=== PATIENT | male | born 1975 | race Caucasian/White ===

== ENCOUNTER 2019-07-07 22:07 | Emergency (ER) | payer OTHER, SELFPAY ==
[2019-07-07 22:08] VITALS: BP 160/96; PULSE 78; RESP 18; TEMP 36.7; O2SAT 99; BMI 31.2
--- NOTE | 2019-07-07 22:09 | EKG12_ITS ---
Test Reason : CHEST PAIN Blood Pressure : / mmHG Vent. Rate : 072 BPM Atrial Rate : 072 BPM P-R Int : 150 ms QRS Dur : 094 ms QT Int : 368 ms P-R-T Axes : 045 -03 013 degrees QTc Int : 402 ms Normal sinus rhythm Minimal voltage criteria for LVH, may be normal variant Borderline ECG Confirmed by SHARI MENJIVAR, TANYA ([id number]), news copy editor JHONNY PÉREZ ([id number]) on 07/09/2019 1:33:19 PM Referred By: LIONEL Confirmed By:TANYA MCCARTHY MD
--- NOTE | 2019-07-07 22:10 | ED.VIS.GEN ---
History of Present Illness Chief Complaint: Chest Pain Informant: Patient Onset: Days - Episode of discomfort on Saturday and pressure sensation most of the day yesterday and pressure sensation that started at 1800 today and has been constant. Context: Sudden Onset Timing: Intermittent Quality: Aching on Saturday pressure Saturday and today Location: Left anterior chest Current Severity: Moderate Maximum Severity: Severe Worsened by: Nothing Relieved by: Nothing Associated Symptoms: None Narrative: Patient is a 43-year-old male who is a non-smoker and nondrinker who presents with left-sided chest pain that occurred with activity yesterday and at rest today. He denies food intolerance. He denies nausea, vomiting diarrhea. Denies black or maroon stool. He denies history of reflux, hiatal hernia or peptic ulcer disease. He denies history of VTE and has no risk factors. He denies leg pain, swelling discoloration. He denies prior chest discomfort. He has not seen a doctor in many years. He has no respiratory symptoms. Prior similar symptoms: No Recent Illness/Hospitalization: No - Past Medical History (1) No significant past medical history Status: Acute Past Medical History - Allergies and Home Meds Allergies/Adverse Reactions: Allergies No Known Allergies Allergy (Verified 07/07/19 22:08) Primary Care Physician: NOT,DEFINED [NON-STAFF] - Prior records reviewed: No Past Medical History: None Surgical History: no surgical history Lives: With Family Smoking Status: Never smoker Alcohol: None Drugs: None Review of Systems General: Denies: Chills, Fever, Malaise, Sweats Eyes: Denies: Visual changes - bilaterally, Blurred Vision - bilaterally ENT: Denies: Bilateral ear pain, Rhinorrhea, Sore throat Cardiovascular: Reports: Chest pain. Denies: Palpitations, Heart racing Respiratory: Denies: Dyspnea, Cough, Sputum, Dyspnea on exertion, Orthopnea, Paroxysmal nocturnal dyspnea Gastrointestinal: Reports: Abdominal pain - Abdominal discomfort that was upper and bilateral on Saturday.. Denies: Nausea, Vomiting, Diarrhea, Constipation, Melena, Hematochezia Genitourinary: Denies: Dysuria, Hematuria, Frequency Musculoskeletal: Denies: Myalgias, Arthralgias, Neck pain, Back pain, Swelling, Extremity Pain, -, - Skin: Denies: Rash, Wounds Neurological: Denies: Headache, Weakness, Numbness Hematologic: Denies: Easy bruising, Easy bleeding Physical Exam Inital Vital Signs reviewed: Yes General: Well nourished, Well developed, No Acute Distress Head: Normocephalic, Atraumatic Eyes: Perrl, EOMI ENT: Moist mucous membranes, No rhinorrhea Neck: Supple, Nontender, No lymphadenopathy, No JVD Cardiovascular: Regular rate, Regular rhythm, No murmurs, Normal S1, Normal S2 Respiratory: No distress, CTA bilaterally, Chest nontender Abdomen: Soft, Nontender, Nondistended, Normal bowel sounds, No masses Back: Nontender, Normal Inspection. Negative for: CVA tenderness Extremities: Nontender, No edema, - - There is no asymmetry, swelling, discoloration, leg vein distention, palpable cords or tenderness along the distribution of the deep venous system. Skin: Normal color, No rash Neurological: Alert, Oriented x3, Cranial nerves II-XII grossly intact, Normal Strength, Normal Sensation Psychological: Normal affect, Normal Mood Diagnostic/Tx/Re-eval Chest X-Ray - ED: 1 View, Read by Radiologist, Normal, Heart, Lungs, Mediastinum, Bony Structures, No Acute Disease Impressions Chest X-Ray 07/07/19 22:15 IMPRESSION: Normal x-ray examination of the chest. Electronically Signed: Gildardo Stein, at 22:26 EDT Tel , Service support , 07/07/19 22:15 Chest 1 View (Portable) [RAD] Stat Laboratory Results 07/07/19 07/07/19 22:10 22:10 WBC 8.7 RBC 4.77 Hgb 14.3 Hct 42.4 MCV 88.9 MCH 30.0 MCHC 33.7 RDW Std Deviation 40.8 RDW Coeff of Nayeli 12.5 Plt Count 222 MPV 8.7 Immature Gran % (Auto) 0.100 Neut % (Auto) 43.4 L Lymph % (Auto) 42.7 H Motley % (Auto) 8.5 Eos % (Auto) 4.5 Baso % (Auto) 0.8 Absolute Neuts (auto) 3.8 Absolute Lymphs (auto) 3.72 Nucleated RBC % 0 Sodium 140 Potassium 3.9 Chloride 105 Carbon Dioxide 30.0 Anion Gap 5 BUN 23 H Creatinine 1.04 Estim Creat Clear Calc 95.54 Est GFR (MDRD) Af Amer 100 Est GFR (MDRD) Non-Af 83 BUN/Creatinine Ratio 22.1 H Glucose 104 Calcium 9.1 Troponin I < 0.015 - Rhythm Strip Rhythm Strip: Sinus Rhythm Rate: 77 Ectopy: None - EKG Initial EKG Interpretation: Sinus Rhythm - Sinus rhythm with ventricular rate of 72. UT interval 150 ms. QRS duration 94 ms. QT duration 368 ms. [place] is normal. EKG was obtained with patient experiencing chest pressure. - Medical Decision Making She presents with hours of left-sided chest discomfort no associated symptoms. Chest pain was not precipitated by activity and is not made worse by activity or change in position. This may represent cardiac versus GI versus pulmonary. EKG, chest x-ray and appropriate blood work including troponin was ordered. Patient is PERC negative. Patient's work-up including troponin with 12 hours of pain yesterday, 4 hours of pain today would rule out react etiology. Patient was informed the cause of his pain is unknown. ED Disposition - Plan for ED Patient: Disposition: Home or Assisted Living Diagnosis: Left-sided chest pain Instructions: CHEST PAIN, Uncertain Cause Referrals: NOT,DEFINED [NON-STAFF] - Ade Pollard, [STAFF PHYSICIAN] - 1-2 Days if not improving Additional Instructions: Since she do not have a primary care physician you were referred to Dr. Pollard.
--- NOTE | 2019-07-07 22:11 | ED.RN ---
NO OLD EKGS IN MUSE
[2019-07-07 22:12] VITALS: O2SAT 100
[2019-07-07] MEDS: Aspirin 81 MG TAB.CHEW 324 MG PO (22:14)
--- NOTE | 2019-07-07 22:15 | RAD_ITS ---
STUDY: X-RAY CHEST REASON FOR EXAM: Male, 43 years old. chest pain TECHNIQUE: Portable chest COMPARISON: None. FINDINGS: The lungs are clear and expanded. There is no demonstrated pleural abnormality. Normal size heart. Normal mediastinum and elías. Normal visualized pulmonary arteries. Normal visualized aortic arch and descending thoracic aorta. Normal visualized thoracic spine. Normal visualized ribs, clavicles, and shoulders. There is no demonstrated abnormality of the visualized soft tissue structures of the upper abdomen. RAD/Chest 1 View (Portable) IMPRESSION: Normal x-ray examination of the chest. Electronically Signed: Gildardo Stein, at 22:26 EDT Tel , Service support ,
[2019-07-07 22:20] LABS: Absolute Lymphocyte Count 3.72 X10^3/uL (0.83-4.51); Absolute Neutrophil Count 3.8 X10^3/uL (2.0-7.7); Basophil# 0.07 X10^3/uL; Basophil% 0.8 % (0-1); Eosinophil# 0.39 X10^3/uL; Eosinophils% 4.5 % (0-5); Hematocrit 42.4 % (40-54); Hemoglobin 14.3 g/dL (13.0-16.5); Lymphocyte # 3.72 X10^3/ul (4.0); Lymphocyte % 42.7 % (19-41); Mean Corp Hgb Conc 33.7 g/dL (32-36); Mean Corpuscular Volume 88.9 fL (80-94); Mean Platelet Vol. 8.7 fl (6.2-12.0); Monocyte# 0.74 X10^3/uL; Monocyte% 8.5 % (0-10); NRBC Flagged by Analyzer 0 % (0-5); Neutrophil # 3.79 X10^3/uL (2.7-7.7); Neutrophil % 43.4 % (47-70); Platelet Count 222 K/mm3 (150-450); RBC Distribution Width CV 12.5 % (11.6-14.6); RBC Distribution Width SD 40.8 fl (35.1-43.9); Red Blood Count 4.77 M/mm3 (4.6-6.2); White Blood Count 8.7 K/mm3 (4.4-11.0)
[2019-07-07 22:40] LABS: Anion Gap 5 (5-15); BUN 23 mg/dL (7-18); BUN/Creat Ratio 22.1 RATIO (10-20); Calcium,Total 9.1 mg/dL (8.5-10.1); Chloride 105 mmol/L (98-107); Creatinine, Serum 1.04 mg/dL (0.70-1.30); EST Glomerular Filtration Rate 83 mL/min (>60); Est Glom Filt Rate - Afr Amer 100 mL/min (>60); Estimated Creatinine Clearance 95.54 ml/min; Glucose 104 mg/dL (74-106); Potassium 3.9 mmol/L (3.5-5.1); Sodium Level 140 mmol/L (136-145)
[2019-07-07 22:57] VITALS: BP 131/80; PULSE 74; RESP 14; O2SAT 96
== END 2019-07-07 23:07 | disposition home or self-care (01) ==
PROVIDERS: Emergency Provider Emergency Medicine
DX: R07.89 Other chest pain (principal)
CPT/HCPCS: 71045; 80048; 84484; 85025; 93005; 99285; A4216